=== PATIENT | male | born 1955 | race Caucasian/White ===

== ENCOUNTER 2019-03-14 10:06 | Day surgery (SDC) | payer BC ==
[~2019-03-14 10:06] MED LIST: Midazolam 1 MG/ML 2 ML SDV ONE; Propofol 200 MG/20 ML SDV ONE; Sodium Chloride 0.9% 10 ML Syringe FLUSH PRN
[2019-03-14] MEDS: Lactated Ringers 1,000 ML IV SCH (10:25)
[2019-03-14] MEDS ORDERED: Propofol 200 MG/20 ML SDV IV ONE (11:02)
[2019-03-14] MEDS ORDERED: Midazolam 1 MG/ML 2 ML SDV IV ONE (11:02)
--- NOTE | 2019-03-18 10:39 | PCM.OPNOTE ---
- General Post-Op/Procedure Note Date of Surgery/Procedure: 03/14/19 Operative Procedure(s): Colonoscopy Findings: Normal colonoscopy Pre Op Diagnosis: Screening colonoscopy, positive Cologard test Anesthesia Technique: MAC Primary Surgeon: Nicky Urena Complications: None Condition: Good Free Text/Narrative:: PREOPERATIVE DIAGNOSIS: {diagnosis:40391} PROCEDURE PERFORMED: Colonoscopy INSTRUMENT USED: Olympus Video Colonoscope ASA CLASSIFICATION: {ASA 2} Informed consent was obtained regarding the procedure and all possible complications including infection, pain, bleeding, and other unknown complications. Possible serious complications might include perforation. In the event of perforation, abdominal exploration, bowel resection, anastomosis, colostomy, and even were discussed. The patient did not have any further questions and wished to proceed. The consent was signed and a time out performed. This procedure was performed using moderate conscious sedation. Intermittent BP , continuous EKG, respiratory and oximetry monitoring were performed without notable aberration in vitals. Current medications, allergies, medical history, and surgical history were reviewed prior to the procedure. Please see the patient's procedure log for further information. SEDATION MEDICATIONS: Versed and other meds per anesthesia The scope was gently advanced all the way up to the ileocecal junction. The ileocecal valve was clearly visualized. ILEOCECAL VALVE: NORMAL CECUM: NORMAL ASCENDING COLON: NORMAL HEPATIC FLEXURE: NORMAL TRANSVERSE COLON: NORMAL SPLENIC FLEXURE: NORMAL DESCENDING COLON: NORMAL SIGMOID COLON: NORMAL RECTUM: NORMAL Retroflexion was employed. Findings: WNL The scope was withdrawn. The patient's tolerance was excellent. There were no complications. No specimens were submitted to pathology. Estimated blood loss: none. FINAL DIAGNOSIS: WNL
== END 2019-03-14 13:00 | disposition home or self-care (01) ==
LOC: KA.SDS 10:06
PROVIDERS: ATTEND Family Medicine
DX: R19.5 Other fecal abnormalities (principal); I10 Essential (primary) hypertension; E66.9 Obesity, unspecified; Z68.37 Body mass index [BMI] 37.0-37.9, adult; Z87.891 Personal history of nicotine dependence; Z79.82 Long term (current) use of aspirin; Z79.899 Other long term (current) drug therapy
CPT/HCPCS: J2250; J2704; J7120

== ENCOUNTER 2024-04-24 16:03 | Emergency (ER) | payer OTHER ==
[2024-04-24] MEDS: Bacitracin/Neomycin/Polymyxin B Oint 0.9 GM U/D Packet TOP ONE (16:44)
[2024-04-24] MEDS: Bacitracin/Neomycin/Polymyxin B Oint 0.9 GM U/D Packet ONE (16:44)
[2024-04-24] MEDS: Lidocaine 1% with EPINEPHrine 1:100,000 20 ML MDV ONE (16:44)
[2024-04-24] MEDS: Lidocaine 1% with EPINEPHrine 1:100,000 20 ML MDV INJECT ONE (16:45)
== END 2024-04-24 17:00 | disposition home or self-care (01) ==
LOC: KA.ED 16:03
DX: S51.812A Laceration without foreign body of left forearm, initial encounter (principal); I10 Essential (primary) hypertension; Z79.899 Other long term (current) drug therapy; Z79.82 Long term (current) use of aspirin; W26.0XXA Contact with knife, initial encounter
CPT/HCPCS: 12002; 99282; 99283; J3490